=== PATIENT | female | born 1990 | race Caucasian/White ===

== ENCOUNTER 2017-12-17 11:23 | Inpatient (IN) | payer OTHER ==
[~2017-12-17] VITALS: Ht 160 cm; Wt 109.1 kg
[2017-12-17] MEDS: LACTATED RINGERS 1,000 ML IV PRN ×2 (12:10→15:25)
[2017-12-17 12:19] LABS: ALBUMIN 1.7 g/dL (3.4-5.0); ANION GAP 12 mmol/L (5-15); CALCIUM 7.6 mg/dL (8.5-10.1); CHLORIDE 108 mmol/L (98-107)
[2017-12-17 12:20] LABS: MICROSCOPIC INDICATED
[2017-12-17 12:23] LABS: ALANINE AMINOTRANSFERASE 299 U/L (12-78); ALKALINE PHOSPHATASE 225 U/L (45-117); BILIRUBIN, DIRECT 1.4 mg/dL (0.1-0.2); BILIRUBIN,TOTAL 2.8 mg/dL (0.2-1.0); CREATININE 0.92 mg/dL (0.55-1.02); TOTAL PROTEIN 5.5 g/dL (6.4-8.2)
[2017-12-17 12:25] VITALS: BP 152/104
[2017-12-17] MEDS ORDERED: MAGNESIUM SULF. PMX 20GM/500ML 500 ML IV PRN (12:34)
[2017-12-17 12:36] LABS: PROTEIN/CREATININE RATIO,URINE > 5030 (0-200); TOTAL PROTEIN,URINE RANDOM > 2500 mg/dL (0-12)
[2017-12-17 12:36] LABS: MEAN CORPUSCULAR HEMOGLOBIN 31.6 pg (27.0-34.8); MEAN CORPUSCULAR HGB CONC 35.1 g/dL (32.4-35.8); MEAN CORPUSCULAR VOLUME 90.2 fL (80-100); MEAN PLATELET VOLUME 9.5 fL (7.4-10.4); RED CELL DISTRIBUTION WIDTH 14.2 % (9.6-15.2)
[2017-12-17] MEDS ORDERED: MAGNESIUM SULF. PMX 20GM/500ML 500 ML IV ONE ×2 (12:36→21:18)
[2017-12-17 12:37] LABS: PLATELET COUNT 28 x10^3/uL (130-400)
[2017-12-17 12:38] LABS: BASOPHILS # (AUTO) 0.01 x10^3/uL (0-0.1); BASOPHILS % (AUTO) 0 % (0-1); EOSINOPHILS % (AUTO) 1 % (1-7); LYMPHOCYTES # (AUTO) 1.47 x10^3/uL (1-3.4); LYMPHOCYTES % (AUTO) 16 % (22-44); MD MORPH REVIEW ONLY; MONOCYTES % (AUTO) 4 % (2-9); NEUTROPHILS % (AUTO) 78 % (42-75)
[2017-12-17 12:40] LABS: ANISOCYTOSIS 1+; POLYCHROMASIA 1+
[2017-12-17 12:41] LABS: <PLATELET ESTIMATE> DECREASED; <PLT MORPHOLOGY> NORMAL PLT MORPH
[2017-12-17] MEDS ORDERED: HYDROmorphone 1 MG/ML, 1ML IV PRN (13:00)
[2017-12-17] MEDS ORDERED: PROMETHAZINE 25 MG/ML, 1ML IV PRN (13:00)
[2017-12-17] MEDS ORDERED: ALBUTEROL SULFATE 2.5 MG/3 ML NPPB PRN (13:00)
[2017-12-17] MEDS ORDERED: ONDANSETRON 2MG/ML, 2ML IVPush PRN (13:00)
[2017-12-17] MEDS ORDERED: MIDAZOLAM 1 MG/ML, 2ML IV PRN (13:00)
[2017-12-17] MEDS ORDERED: MAGNESIUM SULFATE PMX 4GM/100M 100 ML IVPB ONE (13:00)
[2017-12-17] MEDS ORDERED: EPHEDRINE 50 MG/ML, 1ML IVPush PRN (13:00)
[2017-12-17] MEDS ORDERED: LABETALOL 5MG/ML, 20ML IV PRN (13:00)
[2017-12-17] MEDS ORDERED: hydrALAzine 20 MG/ML, 1ML IV PRN (13:00)
[2017-12-17] MEDS ORDERED: FENTANYL PF 100 MCG/2ML IV PRN (13:00)
[2017-12-17] MEDS ORDERED: HYDROcodone/APAP 7.5-325MG/15ML UDC PO PRN (13:00)
[2017-12-17] MEDS ORDERED: MEPERIDINE/PF 25MG/0.5ML IVPush PRN (13:00)
[2017-12-17] MEDS ORDERED: NEWBORN KIT ONE (13:14)
[2017-12-17] MEDS ORDERED: SODIUM BICARBONATE 1 MEQ/ML, 50ML VIAL ONE (13:17)
[2017-12-17] MEDS ORDERED: EPHEDRINE 50 MG/ML, 1ML ONE (13:17)
[2017-12-17] MEDS ORDERED: ONDANSETRON 2MG/ML, 2ML ONE (13:17)
[2017-12-17] MEDS ORDERED: OXYTOCIN 10 UNITS/ML, 1ML ONE (13:17)
[2017-12-17] MEDS ORDERED: KETOROLAC 30 MG/1 ML ONE (13:17)
[2017-12-17] MEDS ORDERED: FENTANYL PF 100 MCG/2ML ONE ×2 (13:17)
[2017-12-17] MEDS ORDERED: CEFAZOLIN 1,000 MG ONE (13:17)
[2017-12-17] MEDS ORDERED: PHENYLEPHRINE 10 MG/ML ONE (13:17)
[2017-12-17] MEDS ORDERED: DEXAMETHASONE 4 MG/ML, 1ML ONE (13:17)
[2017-12-17] MEDS ORDERED: DEXAMETHASONE 4 MG/ML, 5ML IVPush ONE (13:30)
[2017-12-17] MEDS ORDERED: SODIUM CITRATE/CITRIC ACID 30 ML UDC ONE (13:33)
[2017-12-17] MEDS ORDERED: METOCLOPRAMIDE 5 MG/ML, 2ML ONE (13:33)
[2017-12-17 13:55] VITALS: BP 162/100
[2017-12-17 14:05] VITALS: BP 156/95
[2017-12-17] MEDS ORDERED: LACTATED RINGERS 1,000 ML IV SCH (14:09)
[2017-12-17] MEDS ORDERED: CEFAZOLIN PMX 1GM/50ML IVPB ONE (14:30)
[2017-12-17] MEDS ORDERED: SODIUM CITRATE/CITRIC ACID 30 ML UDC PO ONE (14:30)
[2017-12-17] MEDS ORDERED: METOCLOPRAMIDE 5 MG/ML, 2ML IVPush ONE (14:30)
[2017-12-17] MEDS ORDERED: CEFAZOLIN PMX 1GM/50ML 50 ML IVPB ONE (14:30)
[2017-12-17] MEDS ORDERED: OXYcodone 5 MG/5 ML ORAL.SOL UDC ONE (16:14)
[2017-12-17] MEDS ORDERED: HYDROmorphone 2 MG/ML, 1ML ONE (16:17)
[2017-12-17] MEDS ORDERED: OXYTOCIN 30U/ 0.9% NaCL 500ML 500 ML ONE (16:33)
[2017-12-17] MEDS ORDERED: HYDROmorphone PCA 30 MG/30 ML IV PRN ×2 (17:00→17:30)
[2017-12-17] MEDS ORDERED: DOCUSATE 100 MG CAPSULE PO PRN (17:00)
[2017-12-17] MEDS ORDERED: OXYcodone IR 5MG TABLET PO PRN ×2 (17:00)
[2017-12-17] MEDS ORDERED: CALCIUM GLUCONATE 4.6 MEQ/10 ML IV PRN (17:00)
[2017-12-17] MEDS ORDERED: MISOPROSTOL 200 MCG TABLET PR PRN (17:00)
[2017-12-17] MEDS ORDERED: CARBOPROST TROMETHAMINE 250 MCG/ML, 1ML IM PRN (17:00)
[2017-12-17] MEDS ORDERED: OXYcodone/APAP 5/325MG TABLET PO PRN (17:00)
[2017-12-17] MEDS ORDERED: MAGNESIUM SULFATE PMX 2GM/50ML 50 ML IVPB ONE (17:00)
[2017-12-17] MEDS: OXYTOCIN 30U/ 0.9% NaCL 500ML 500 ML IV SCH (17:06)
[2017-12-17] MEDS: OXYcodone 5 MG/5 ML ORAL.SOL UDC PO PRN (17:11)
[2017-12-17] MEDS ORDERED: HYDROmorphone 1 MG/ML, 1ML IV ONE (17:30)
[2017-12-17] MEDS ORDERED: hydrALAzine 20 MG/ML, 1ML ONE (18:15)
[2017-12-17 18:20] LABS: ALANINE AMINOTRANSFERASE 269 U/L (12-78); ALBUMIN 1.8 g/dL (3.4-5.0); ANION GAP 11 mmol/L (5-15); CALCIUM 7.8 mg/dL (8.5-10.1); CHLORIDE 107 mmol/L (98-107)
[2017-12-17 18:22] LABS: ALKALINE PHOSPHATASE 215 U/L (45-117); BILIRUBIN,TOTAL 2.9 mg/dL (0.2-1.0); TOTAL PROTEIN 5.6 g/dL (6.4-8.2)
[2017-12-17 18:28] LABS: MEAN CORPUSCULAR HEMOGLOBIN 31.5 pg (27.0-34.8); MEAN CORPUSCULAR HGB CONC 34.7 g/dL (32.4-35.8); MEAN CORPUSCULAR VOLUME 90.8 fL (80-100); MEAN PLATELET VOLUME 7.7 fL (7.4-10.4); PLATELET COUNT 54 x10^3/uL (130-400); RED BLOOD COUNT 3.55 x10^6/uL (3.82-5.3); RED CELL DISTRIBUTION WIDTH 14.4 % (9.6-15.2)
[2017-12-17 18:29] LABS: MD YES
[2017-12-17 18:46] LABS: ANISOCYTOSIS 1+; BAND#(MANUAL) 0.59 x10^3/uL; BANDS%(MANUAL) 6 % (0-7); EOS% (MANUAL) 1 % (1-7); LYMPH#(MANUAL) 0.89 x10^3/uL (1-3.4); LYMPHS% (MANUAL) 9 % (22-44); SEG#(MANUAL) 8.32 x10^3/uL (1.8-6.8); SEGS% (MANUAL) 84 % (42-75)
[2017-12-17 18:47] LABS: <PLATELET ESTIMATE> DECREASED; <PLT MORPHOLOGY> NORMAL PLT MORPH; POLYCHROMASIA 1+
[2017-12-17] MEDS ORDERED: hydrALAzine 20 MG/ML, 1ML IVPush ONE (19:00)
[2017-12-17] MEDS ORDERED: LABETALOL 5MG/ML, 20ML IVPush ONE ×3 (19:00)
[2017-12-17] MEDS ORDERED: LABETALOL 20 MG/4 ML IVPush ONE (19:00)
[2017-12-17] MEDS: DEXAMETHASONE 4 MG/ML, 1ML IV SCH (19:32)
[2017-12-17] MEDS ORDERED: DEXAMETHASONE 4 MG/ML, 5ML IV SCH (21:00)
[2017-12-17 21:20] VITALS: BP 113/69
[2017-12-17] MEDS: MAGNESIUM SULF. PMX 20GM/500ML 500 ML IV SCH (21:24)
[2017-12-18 00:30] VITALS: BP 117/71
[2017-12-18 00:46] LABS: ALANINE AMINOTRANSFERASE 224 U/L (12-78); ALBUMIN 1.7 g/dL (3.4-5.0); ANION GAP 11 mmol/L (5-15); CALCIUM 7.4 mg/dL (8.5-10.1); CHLORIDE 106 mmol/L (98-107); CREATININE 0.88 mg/dL (0.55-1.02)
[2017-12-18 00:47] LABS: ALKALINE PHOSPHATASE 209 U/L (45-117); BILIRUBIN,TOTAL 2.2 mg/dL (0.2-1.0); TOTAL PROTEIN 5.6 g/dL (6.4-8.2)
[2017-12-18 00:58] LABS: BASOPHILS % (AUTO) 0 % (0-1); EOSINOPHILS % (AUTO) 0 % (1-7); LYMPHOCYTES # (AUTO) 1.33 x10^3/uL (1-3.4); LYMPHOCYTES % (AUTO) 10 % (22-44); MD SCAN; MEAN CORPUSCULAR HEMOGLOBIN 30.5 pg (27.0-34.8); MEAN CORPUSCULAR HGB CONC 33.7 g/dL (32.4-35.8); MEAN CORPUSCULAR VOLUME 90.5 fL (80-100); MEAN PLATELET VOLUME 9.4 fL (7.4-10.4); MONOCYTES # (AUTO) 0.22 x10^3/uL (0.2-0.8); MONOCYTES % (AUTO) 2 % (2-9); NEUTROPHILS # (AUTO) 11.63 x10^3/uL (1.8-6.8); NEUTROPHILS % (AUTO) 88 % (42-75); PLATELET COUNT 82 x10^3/uL (130-400); RED CELL DISTRIBUTION WIDTH 14.9 % (9.6-15.2)
[2017-12-18] MEDS: DEXAMETHASONE 4 MG/ML, 1ML IV SCH ×2 (00:59→07:00)
[2017-12-18] MEDS: OXYTOCIN 30U/ 0.9% NaCL 500ML 500 ML IV SCH ×2 (02:50→12:50)
[2017-12-18 03:41] VITALS: BP 120/73
[2017-12-18] MEDS: LACTATED RINGERS 1,000 ML IV SCH ×2 (06:10→08:55)
[2017-12-18 07:13] LABS: MEAN CORPUSCULAR HEMOGLOBIN 29.7 pg (27.0-34.8); MEAN CORPUSCULAR HGB CONC 33.1 g/dL (32.4-35.8); MEAN CORPUSCULAR VOLUME 89.9 fL (80-100); RED BLOOD COUNT 3.15 x10^6/uL (3.82-5.3); RED CELL DISTRIBUTION WIDTH 14.8 % (9.6-15.2)
[2017-12-18 07:25] LABS: ALANINE AMINOTRANSFERASE 186 U/L (12-78); ALBUMIN 1.6 g/dL (3.4-5.0); ANION GAP 10 mmol/L (5-15); CALCIUM 7.2 mg/dL (8.5-10.1); CHLORIDE 107 mmol/L (98-107); CREATININE 0.72 mg/dL (0.55-1.02)
[2017-12-18 07:27] LABS: BASOPHILS # (AUTO) 0.01 x10^3/uL (0-0.1); BASOPHILS % (AUTO) 0 % (0-1); EOSINOPHILS # (AUTO) 0.01 x10^3/uL (0-0.4); EOSINOPHILS % (AUTO) 0 % (1-7); LYMPHOCYTES # (AUTO) 1.44 x10^3/uL (1-3.4); LYMPHOCYTES % (AUTO) 10 % (22-44); MD SCAN; MEAN PLATELET VOLUME 9.1 fL (7.4-10.4); MONOCYTES # (AUTO) 0.42 x10^3/uL (0.2-0.8); MONOCYTES % (AUTO) 3 % (2-9); NEUTROPHILS % (AUTO) 87 % (42-75); PLATELET COUNT 105 x10^3/uL (130-400)
[2017-12-18 07:28] LABS: ALKALINE PHOSPHATASE 183 U/L (45-117); BILIRUBIN,TOTAL 1.6 mg/dL (0.2-1.0); TOTAL PROTEIN 5.5 g/dL (6.4-8.2)
[2017-12-18] MEDS ORDERED: DOCUSATE 100 MG CAPSULE ONE (08:53)
[2017-12-18] MEDS ORDERED: PRENATAL VIT/IRON/FA 1 EACH TABLET ONE (08:53)
[2017-12-18] MEDS: PRENATAL VIT/IRON/FA 1 EACH TABLET PO SCH ×3 (08:56→09:00)
[2017-12-18] MEDS: OXYcodone 5 MG/5 ML ORAL.SOL UDC PO PRN ×2 (09:01→16:46)
[2017-12-18] MEDS ORDERED: OXYcodone 5 MG/5 ML ORAL.SOL UDC ONE ×2 (09:01→16:44)
[2017-12-18] MEDS ORDERED: PREN1TAB60 PO (11:48)
[2017-12-18] MEDS: MAGNESIUM SULF. PMX 20GM/500ML 500 ML IV SCH ×2 (12:50→13:29)
[2017-12-18] MEDS ORDERED: MAGNESIUM SULF. PMX 20GM/500ML 500 ML IV ONE (13:26)
[2017-12-18 17:49] VITALS: BP 150/98
[2017-12-18 19:30] VITALS: BP 143/88
[2017-12-18] MEDS: SODIUM CHLORIDE FLUSH 3ML SYRINGE IVF SCH (21:00)
[2017-12-19] MEDS: OXYcodone 5 MG/5 ML ORAL.SOL UDC PO PRN ×4 (00:17→21:49)
[2017-12-19 00:20] VITALS: BP 119/75
[2017-12-19 05:50] VITALS: BP 120/82
[2017-12-19] MEDS: PRENATAL VIT/IRON/FA 1 EACH TABLET PO SCH (08:04)
[2017-12-19 08:10] VITALS: BP 117/76
[2017-12-19] MEDS: SODIUM CHLORIDE FLUSH 3ML SYRINGE IVF SCH ×2 (09:00→21:00)
[2017-12-19] MEDS ORDERED: OXYcodone 5 MG/5 ML ORAL.SOL UDC ONE (10:16)
[2017-12-19 12:10] VITALS: BP 117/77
[2017-12-19 16:30] VITALS: BP 135/65
[2017-12-19 22:45] VITALS: BP 137/87
[2017-12-20 01:55] VITALS: BP 131/79
[2017-12-20 06:15] VITALS: BP 133/89
[2017-12-20] MEDS: OXYcodone 5 MG/5 ML ORAL.SOL UDC PO PRN (06:21)
[2017-12-20 08:00] VITALS: BP 133/95
[2017-12-20] MEDS: PRENATAL VIT/IRON/FA 1 EACH TABLET PO SCH (09:00)
[2017-12-20] MEDS ORDERED: OXYC5SOL8 PO (11:12)
[2017-12-20] MEDS ORDERED: FERR325T23 PO (11:13)
== END 2017-12-20 15:15 | disposition home or self-care (01) | DRG 765 ==
LOC: LDOP 11:23 → MERGE 12:11 → EDIP 12:11 → LDIP 12:17 → 2NW 12-18 17:19
PROVIDERS: ADMIT Student in an Organized Health Care Education/Training Program; ATTEND Student in an Organized Health Care Education/Training Program
PROC: 10D00Z1 Extraction of Products of Conception, Low, Open Approach (ICD-10-PCS; principal; 2017-12-17)
PROC: 30233R1 Transfusion of Nonautologous Platelets into Peripheral Vein, Percutaneous Approach (ICD-10-PCS; 2017-12-17)
DX: O14.24 HELLP syndrome, complicating childbirth (principal); D62 Acute posthemorrhagic anemia; E66.01 Morbid (severe) obesity due to excess calories; O99.89 Other specified diseases and conditions complicating pregnancy, childbirth and the puerperium; O77.0 Labor and delivery complicated by meconium in amniotic fluid; O99.214 Obesity complicating childbirth; G89.18 Other acute postprocedural pain; O99.02 Anemia complicating childbirth; Z37.0 Single live birth; Z3A.36 36 weeks gestation of pregnancy; Q51.810 Arcuate uterus
CPT/HCPCS: 36415; 71045; 80053; 81001; 82248; 82570; 82803; 83735; 84156; 84550; 85025; 86850; 86900; J0690; J1100; J1170; J1885; J2405; J3010; J0360; J2370; J2590; J2765; J3475; J7120; P9035

== ENCOUNTER 2018-10-30 04:53 | Emergency (ER) | payer MEDICAID, OTHER ==
[~2018-10-30] VITALS: Ht 160 cm; Wt 105.1 kg
[~2018-10-30 04:53] MED LIST: FERR325T23 PO; OXYC5SOL8 PO; PREN1TAB60 PO
--- NOTE | 2018-10-30 05:04 | NUR ---
ABD PAIN X 2 MONTHS WORSE SINCE YESTERDAY per triage note
--- NOTE | 2018-10-30 05:17 | NUR ---
PT STATED PT HAD C SECTION THEN HAVING PAIN AT SURGICAL SITE BUT THIS PAIN IS DIFFERENT SITE LEFT GROIN SITE
--- NOTE | 2018-10-30 05:18 | NUR ---
VSS STABLE PT IS WAITING FOR ERP EVAL
[2018-10-30] MEDS ORDERED: SODIUM CHLORIDE FLUSH 10ML SYR IVF ONE (05:30)
[2018-10-30] MEDS ORDERED: ONDANSETRON 2MG/ML, 2ML IVPush ONE (05:30)
[2018-10-30] MEDS ORDERED: ONDANSETRON 2MG/ML, 2ML ONE (05:50)
[2018-10-30 05:51] LABS: BASOPHILS # (AUTO) 0.04 x10^3/uL (0-0.1); BASOPHILS % (AUTO) 0 % (0-1); EOSINOPHILS # (AUTO) 0.25 x10^3/uL (0-0.4); EOSINOPHILS % (AUTO) 3 % (1-7); LYMPHOCYTES # (AUTO) 2.97 x10^3/uL (1-3.4); LYMPHOCYTES % (AUTO) 33 % (22-44); MD NO; MEAN CORPUSCULAR HGB CONC 33.8 g/dL (32.4-35.8); MEAN CORPUSCULAR VOLUME 88.8 fL (80-100); MEAN PLATELET VOLUME 7.6 fL (7.4-10.4); MONOCYTES # (AUTO) 0.52 x10^3/uL (0.2-0.8); MONOCYTES % (AUTO) 6 % (2-9); NEUTROPHILS # (AUTO) 5.25 x10^3/uL (1.8-6.8); NEUTROPHILS % (AUTO) 58 % (42-75); PLATELET COUNT 284 x10^3/uL (130-400); RED BLOOD COUNT 4.66 x10^6/uL (3.82-5.3); RED CELL DISTRIBUTION WIDTH 13.2 % (9.6-15.2)
[2018-10-30 06:05] LABS: ALBUMIN 3.8 g/dL (3.4-5.0); CALCIUM 8.4 mg/dL (8.5-10.1); CHLORIDE 112 mmol/L (98-107)
[2018-10-30 06:11] LABS: ALANINE AMINOTRANSFERASE 20 U/L (12-78); ALKALINE PHOSPHATASE 104 U/L (45-117); ANION GAP 6 mmol/L (5-15); BILIRUBIN,TOTAL 0.4 mg/dL (0.2-1.0); TOTAL PROTEIN 7.2 g/dL (6.4-8.2)
[2018-10-30 06:18] LABS: HCG UR SG 1.028 (1.003-1.030); MICROSCOPIC NOT IND
[2018-10-30 06:20] LABS: CULTURE INDICATED? NO
[2018-10-30 06:48] VITALS: BP 110/67
--- NOTE | 2018-10-30 06:57 | NUR ---
given report to radha Bush pt denied any nausea at this time vss stable
== END 2018-10-30 07:18 | disposition home or self-care (01) ==
LOC: ED 07:06
DX: K81.0 Acute cholecystitis (principal)
CPT/HCPCS: 36415; 76700; 80053; 81003; 81025; 83690; 85025; 96374; 99284; J2405

== ENCOUNTER 2020-06-14 01:37 | Emergency (ER) | payer OTHER ==
[~2020-06-14] VITALS: Ht 160 cm; Wt 104.3 kg
[2020-06-14 02:23] LABS: BASOPHILS % (AUTO) 1 % (0-1); EOSINOPHILS % (AUTO) 3 % (1-7); LYMPHOCYTES % (AUTO) 35 % (22-44); MEAN CORPUSCULAR HEMOGLOBIN 30.6 pg (27.0-34.8); MEAN CORPUSCULAR HGB CONC 33.8 g/dL (32.4-35.8); MEAN PLATELET VOLUME 7.6 fL (7.4-10.4); MONOCYTES % (AUTO) 7 % (2-9); NEUTROPHILS % (AUTO) 55 % (42-75); PLATELET COUNT 254 x10^3/uL (130-400); RED BLOOD COUNT 4.48 x10^6/uL (3.82-5.3)
[2020-06-14 02:25] LABS: MD NO
[2020-06-14] MEDS ORDERED: MAALOX/HYOSCYAMINE/LIDOCAINE 45 ML BTL PO ONE (02:30)
[2020-06-14 02:31] LABS: ALANINE AMINOTRANSFERASE 21 U/L (12-78); ALBUMIN 3.7 g/dL (3.4-5.0); ANION GAP 5 mmol/L (5-15); CALCIUM 8.5 mg/dL (8.5-10.1); CHLORIDE 110 mmol/L (98-107)
[2020-06-14] MEDS ORDERED: MAALOX/HYOSCYAMINE/LIDOCAINE 45 ML BTL ONE (02:31)
--- NOTE | 2020-06-14 02:36 | NUR ---
THIS FLOAT RN AT BEDSIDE. PT MEDICATED ORDERED ON EMAR. PT EDUCATED ON NEED FOR UA. PT STATES SHE DOES NOT NEED TO VOID AT THIS TIME. CALL LIGHT W/IN REACH. PT INSTRUCTED ON USE. VERBALIZED UNDERSTANDING.
[2020-06-14 02:37] LABS: ALKALINE PHOSPHATASE 92 U/L (45-117); BILIRUBIN,TOTAL 0.4 mg/dL (0.2-1.0); CREATININE 0.66 mg/dL (0.55-1.02); TOTAL PROTEIN 7.2 g/dL (6.4-8.2)
--- NOTE | 2020-06-14 03:03 | NUR ---
pt resting in bed, pt has no current wants or needs at this time. pt provided urine, urine sent to lab.
[2020-06-14 03:11] LABS: MICROSCOPIC INDICATED
[2020-06-14 04:48] VITALS: BP 129/69
== END 2020-06-14 04:50 | disposition home or self-care (01) ==
LOC: ED 02:40
DX: K29.00 Acute gastritis without bleeding (principal); Z90.49 Acquired absence of other specified parts of digestive tract
CPT/HCPCS: 36415; 80053; 81001; 83690; 84703; 85025; 87086; 99283